=== PATIENT | female | born 1955 ===

== ENCOUNTER 2021-11-28 19:49 | Emergency (ER) | payer SELFPAY ==
[2021-11-28] MEDS ORDERED: ONDANSETRON 4 MG/2 ML INJ IV ONE (21:12)
[2021-11-28] MEDS ORDERED: SODIUM CHLORIDE 0.9% 1000 ML 1,000 ML IV ONE (21:12)
--- NOTE | 2021-11-28 21:20 | Emergency Department Report ---
ED Dizziness HPI - General Chief Complaint: Dizziness Stated Complaint: WEAKNESS/HTN Time Seen by Provider: 11/28/21 21:09 Source: patient Mode of arrival: Ambulatory Limitations: No Limitations - History of Present Illness Initial Comments: Patient is a 66-year-old female presenting to ED with complaint of dizziness with nausea and vomiting. States she was on a flight that had turbulence which she thinks may have triggered her vertigo. States the off boarding process was prolonged which caused her more discomfort. She denies any chest pain or sh ortness of breath. 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 Currently states her symptoms are improved. - Related Data Allergies Allergy/AdvReac Type Severity Reaction Status Date / Time Penicillins Allergy Hives Verified 11/28/21 21:08 Sulfa (Sulfonamide Allergy Itching Verified 11/28/21 21:08 Antibiotics) theophylline Allergy Hives Verified 11/28/21 21:22 ED Review of Systems ROS: Stated complaint: WEAKNESS/HTN Other details as noted in HPI Comment: All other systems reviewed and negative Constitutional: denies: chills, fever Respiratory: denies: cough, shortness of breath, wheezing Cardiovascular: denies: chest pain, palpitations Gastrointestinal: denies: abdominal pain, nausea, diarrhea Musculoskeletal: denies: back pain, joint swelling, arthralgia Skin: denies: rash, lesions Neurological: vertigo Psychiatric: denies: anxiety, depression ED Past Medical Hx - Past Medical History Previous Medical History?: Yes Additional medical history: Veritgo - Surgical History Past Surgical History?: Yes Additional Surgical History: Hysterectomy - Social History Smoking Status: Never Smoker Substance Use Type: None ED Physical Exam - General Limitations: No Limitations General appearance: alert, in no apparent distress - Head Head exam: Present: atraumatic, normocephalic - Neck Neck exam: Present: normal inspection - Respiratory Respiratory exam: Present: normal lung sounds bilaterally. Absent: respiratory distress - Cardiovascular Cardiovascular Exam: Present: regular rate, normal rhythm, normal heart sounds - GI/Abdominal GI/Abdominal exam: Present: soft. Absent: distended, tenderness - Rectal Rectal exam: Present: deferred - Neurological Exam Neurological exam: Present: alert, oriented X3 - Psychiatric Psychiatric exam: Present: normal affect, normal mood - Skin Skin exam: Present: warm, dry, intact, normal color ED Course Vital Signs 11/28/21 11/28/21 11/28/21 21:00 21:04 21:07 Temperature 98 F 98.1 F Pulse Rate 69 70 Respiratory 18 13 16 Rate Blood Pressure 175/90 Blood Pressure 186/98 [Right] O2 Sat by Pulse 100 100 Oximetry 11/28/21 11/28/21 11/28/21 21:09 21:15 21:31 Temperature 98.1 F Pulse Rate 70 68 68 Respiratory 16 11 L 9 L Rate Blood Pressure 186/98 201/99 Blood Pressure 186/98 [Right] O2 Sat by Pulse 100 100 100 Oximetry 11/28/21 11/28/21 11/28/21 21:45 22:00 22:15 Temperature Pulse Rate 71 69 71 Respiratory 18 19 13 Rate Blood Pressure 178/108 178/108 170/83 Blood Pressure [Right] O2 Sat by Pulse 100 100 100 Oximetry 11/28/21 11/28/21 22:31 22:45 Temperature Pulse Rate 67 67 Respiratory 19 15 Rate Blood Pressure 175/82 170/83 Blood Pressure [Right] O2 Sat by Pulse 100 100 Oximetry ED Medical Decision Making - Lab Data Result diagrams: 11/28/21 22:34 11/28/21 22:34 - Medical Decision Making Patient given 1 L normal saline bolus along with IV Zofran. CBC and CMP grossly unremarkable. EKG normal sinus rhythm with a rate of 67. Patient currently asymptomatic. She is stable for discharge home with return precautions. Critical care attestation.: If time is entered above; I have spent that time in minutes in the direct care of this critically ill patient, excluding procedure time. ED Disposition Clinical Impression: Dizziness, nonspecific, Nausea & vomiting Disposition: 01 HOME / SELF CARE / HOMELESS Is pt being admited?: No Does the pt Need Aspirin: No Condition: Stable Instructions: Dizziness, [id number] Time of Disposition: 00:26
[2021-11-28 22:25] LABS: Bilirubin,Urine NEG (Negative); Blood,Urine NEG (Negative); Color,Urine Colorless (Yellow); Protein,Urine <15 mg/dL mg/dL (Negative); Urobilinogen,Urine < 2.0 mg/dL (<2.0); WBC,Urine < 1.0 /HPF (0.0-6.0)
[2021-11-28 22:50] LABS: Basophils # (Auto) 0.1 K/mm3 (0.0-0.1); Basophils % (Auto) 0.8 % (0.0-1.8); Eosinophils % (Auto) 0.4 % (0.0-4.3); Hematocrit 33.3 % (30.3-42.9); Hemoglobin 11.3 gm/dl (10.1-14.3); Lymphocytes # (Auto) 2.1 K/mm3 (1.2-5.4); Lymphocytes % (Auto) 28.5 % (13.4-35.0); Mean Corpuscular HGB Conc 34 % (30-34); Mean Corpuscular Volume 89 fl (79-97); Monocytes # (Auto) 0.5 K/mm3 (0.0-0.8); Monocytes % (Auto) 6.4 % (0.0-7.3); Platelet Count 221 K/mm3 (140-440); Red Blood Count 3.75 M/mm3 (3.65-5.03); Red Cell Distribution Width 13.8 % (13.2-15.2)
[2021-11-28 23:15] LABS: Alanine Aminotransferase 14 units/L (7-56); Albumin 4.1 g/dL (3.9-5); Blood Urea Nitrogen 12 mg/dL (7-17); Calcium 8.8 mg/dL (8.4-10.2); Hemolysis Index 3
[2021-11-28 23:24] LABS: BUN/Creatinine Ratio 20
[2021-11-29 00:40] VITALS: BP 158/85
--- NOTE | 2021-11-29 10:43 | Electrocardiograph Report ---
[facility] Test Date: 2021-11-28 Test Time: 21:27:40 Pat Name: JENNIFER JO Department: Room: Gender: F [employer]: [id number] : 1955 Requested By: AUSTEN MCDONALD Order Number: [id number] Reading MD: Nazario Pollard Measurements Intervals [place] Rate: 67 P: 54 MO: 175 QRS: 18 QRSD: 78 T: 48 QT: 405 QTc: 427 Interpretive Statements Sinus rhythm septal infarct, age indeterminate No previous ECG available for comparison Electronically Signed On 11-29-2021 10:42:55 EDT by Nazario Pollard
== END 2021-11-29 18:07 | disposition home or self-care (01) ==
LOC: ED 19:49
DX: R42 Dizziness and giddiness (principal); R11.2 Nausea with vomiting, unspecified; Z90.710 Acquired absence of both cervix and uterus
CPT/HCPCS: 36415; 80053; 81001; 84484; 85025; 93005; 96361; 96374; 99284; J2405; J7030